=== PATIENT | male | born 1960 | race Caucasian/White ===

== ENCOUNTER 2024-11-26 05:59 | Emergency (ER) | payer OTHER ==
[~2024-11-26] VITALS: Ht 172.7 cm; Wt 72.7 kg
[2024-11-26 06:29] LABS: BASOPHILS # (AUTO) 0.1 X10'3 (0-0.2); BASOPHILS % (AUTO) 0.7 % (0-1); EOSINOPHILS # (AUTO) 0.3 X10'3 (0-0.9); EOSINOPHILS % (AUTO) 3.7 % (0-6); HEMATOCRIT 42.9 % (42.0-52.0); HEMOGLOBIN 14.1 g/dl (14.0-17.9); LYMPHOCYTES # (AUTO) 2.4 X10'3 (1.1-4.8); LYMPHOCYTES % (AUTO) 30.4 % (21-51); MEAN CORPUSCULAR HEMOGLOBIN 28.6 PG (27.0-31.0); MEAN CORPUSCULAR HGB CONC 32.8 g/dL (33.0-36.5); MEAN CORPUSCULAR VOLUME 87.3 FL (78-98); MEAN PLATELET VOLUME 8.5 FL (7.4-10.4); MONOCYTES # (AUTO) 0.5 X10'3 (0-0.9); MONOCYTES % (AUTO) 6.4 % (2-12); NEUTROPHILS # (AUTO) 4.6 X10'3 (1.8-7.7); NEUTROPHILS % (AUTO) 58.8 % (42-75); PLATELET COUNT 281 X10'3 (140-440); RED BLOOD COUNT 4.92 X10'6 (4.70-6.10); RED CELL DISTRIBUTION WIDTH 14.1 % (11.5-14.5); WHITE BLOOD COUNT 7.8 X10'3 (4.5-11.0)
[2024-11-26 06:45] LABS: ALBUMIN 3.6 G/DL (3.4-5.0); ANION GAP 8 (8-16); BLOOD UREA NITROGEN 20 MG/DL (7-18); BUN/CREATININE RATIO 19.8 (10.0-20.0); CALCIUM 8.6 MG/DL (8.5-10.1); CHLORIDE 106 MMOL/L (99-107); CREATININE 1.01 MG/DL (0.60-1.10); GLUCOSE 94 MG/DL (70-104); POTASSIUM 3.6 MMOL/L (3.5-5.1); PRO BRAIN NATRIURETIC PEPTIDE 100 PG/ML (0-125); SODIUM 143 MMOL/L (135-145); TOTAL CARBON DIOXIDE 29.4 MMOL/L (24-32); eCRCL 71 ML/MIN; eGFR 74 ML/MIN
--- NOTE | 2024-11-26 06:50 | RADIOLOGY REPORT ---
CHEST RADIOGRAPH Indication: CP Technique: Single frontal view of the chest was obtained Comparison: None FINDINGS: Lines and Tubes: None Lungs: No focal consolidation. Pleura: No effusion. No pneumothorax. Cardiomediastinal contours: Unremarkable Bones: No acute osseous abnormality. IMPRESSION: 1. No acute cardiopulmonary disease.
[2024-11-26 07:25] VITALS: TEMP 98
--- NOTE | 2024-11-26 07:58 | ELECTROCARDIOGRAPH REPORT ---
[facility] Test Date: 2024-11-26 Test Time: 06:03:39 Pat Name: WESLEY CABRERA Department: EMERGENCY ROOM Room: Gender: M [employer] Utility: JACLYN : 1960 Requested By: DEBBIE MANZANARES Order Number: [id number] Reading MD: Dr. Kevin Wilson Measurements Intervals [place] Rate: 62 P: 70 MD: 131 QRS: 67 QRSD: 97 T: 42 QT: 414 QTc: 421 Interpretive Statements Sinus rhythm Baseline wander in lead(s) V1 Electronically Signed On 11-28-2024 6:35:[address] Kevin Wilson Please click the below link to view image of tracing.
--- NOTE | 2024-11-26 08:36 | Physician Documentation ---
History of Present Illness ~ Chief Complaint: Shortness of Breath Stated Complaint: SHORT OF BREATH Time Seen by MD: 06:18 Mode of Arrival: EMS HPI Patient was brought to the hospital by EMS. He said that a couple of days ago he felt like he was fading in and out he was exposed to some heat. He took a Narcan says he has been feeling short of breath since this has been three days. He does not have chest pain pressure or tightness no cough or any other symptoms. Tetanus within 5 years?: Yes Medication Reconciliation Allergies: Coded Allergies: No Known Allergies (Unverified , 11/26/24) Physical Exam Vital Signs: Temperature: 98.0, Source: Oral, Heart Rate: 62, Respiratory Rate: 13, BP: 104/71, Pulse Oximetry: 97, Weight: 72.730 Oxygen Flow Rate: 0 Physical Exam General: Awake and Alert, no acute distress. HEENT: Conjunctiva pink, Sclera clear, Mucus Membranes moist. Neck: Supple without masses and tenderness. Resp: Unlabored. Lungs clear to auscultation bilaterally. Heart: Regular Rate and rhythm, normal S1 and S2 without murmur, rub or gallop. Abdomen: Soft and non tender no organomegaly Extremities: No cyanosis,clubbing or edema. Skin: Warm and Dry. Neuro: GCS 15; no focal deficits Progress Results/Orders Results/Orders Vital Signs 11/26/24 11/26/24 11/26/24 11/26/24 06:08 06:35 06:44 07:25 Temp 98.0 98.0 98.0 Pulse 65 63 62 Resp 14 13 13 B/P (MAP) 120/78 109/74 (86) 104/71 (82) Pulse Ox 100 100 97 O2 Flow Rate 0 0 0 Laboratory Tests Test 11/26/24 06:15 11/26/24 08:00 White Blood Count 7.8 Red Blood Count 4.92 Hemoglobin 14.1 Hematocrit 42.9 Mean Corpuscular Volume 87.3 Mean Corpuscular Hemoglobin 28.6 Mean Corpuscular Hemoglobin Concent 32.8 L Red Cell Distribution Width 14.1 Platelet Count 281 Mean Platelet Volume 8.5 Neutrophils (%) (Auto) 58.8 Lymphocytes (%) (Auto) 30.4 Monocytes (%) (Auto) 6.4 Eosinophils (%) (Auto) 3.7 Basophils (%) (Auto) 0.7 Neutrophils # (Auto) 4.6 Lymphocytes # (Auto) 2.4 Monocytes # (Auto) 0.5 Eosinophils # (Auto) 0.3 Basophils # (Auto) 0.1 CBC Comment Sodium Level 143 Potassium Level 3.6 Chloride Level 106 Carbon Dioxide Level 29.4 Anion Gap 8 Blood Urea Nitrogen 20 H Creatinine 1.01 Estimated GFR/1.73 m2 74 BUN/Creatinine Ratio 19.8 Glucose Level 94 Calcium Level 8.6 Troponin I High Sensitivity 5 Pro-B-Type Natriuretic Peptide 100 Albumin 3.6 Chemistry Comments Medical Decision Making Findings EKGs interpreted by me shows a sinus rhythm at 62 beats per minute axis intervals ST segments are normal. Patient is here because he feels short of breath since giving himself Narcan. Explained to him that the half-life of Narcan is very shortened that is out of his system. He had a cardiac workup CBC BMP troponin chest x-ray are all unremarkable patient was discharged. Departure Disposition: HOME / SELF CARE / HOMELESS Impression: Primary Impression: Anxiety Additional Impression: Dyspnea Qualified Codes: R06.00 - Dyspnea, unspecified Condition: Stable Discharge Instructions: Shortness of Breath, Adult, [id number] Referrals: NO PRIMARY CARE PROVIDER (PCP) Education Educated: Patient Educated regarding: diagnosis, treatment, prognosis, need for follow up Signature Scribe Signature: no scribe Attestation: no scribe SATHYA RIVAS MD Nov 26, 2024 08:36
[2024-11-26 09:08] VITALS: BP 104/68; PULSE 68; RESP 15; O2SAT 98
== END 2024-11-26 08:54 | disposition home or self-care (01) ==
LOC: ER 05:59
DX: F41.9 Anxiety disorder, unspecified (principal); R06.02 Shortness of breath
CPT/HCPCS: 36415; 71045; 80048; 83880; 84484; 85025; 93005; 99285

== ENCOUNTER 2025-01-28 08:16 | Emergency (ER) | payer MEDICARE, MEDICAID ==
[~2025-01-28] VITALS: Ht 172.7 cm; Wt 150.6 kg
[2025-01-28 08:18] VITALS: BP 120/77; PULSE 97; RESP 12; O2SAT 98
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
[2025-01-28 10:20] VITALS: TEMP 98.7
== END 2025-01-28 10:25 | disposition home or self-care (01) ==
LOC: ER 08:17
DX: F41.9 Anxiety disorder, unspecified (principal); J34.89 Other specified disorders of nose and nasal sinuses
CPT/HCPCS: 99283